=== PATIENT | male | born 1955 | race Caucasian/White ===

== ENCOUNTER 2023-12-04 15:37 | Emergency (ER) | payer OTHER ==
[2023-12-04] MEDS: Lidocaine 1% with EPINEPHrine 1:100,000 20 ML MDV INJECT ONE (19:19)
[2023-12-04] MEDS: Ibuprofen 600 MG Tab PO ONE (19:45)
== END 2023-12-04 19:55 | disposition home or self-care (01) ==
LOC: KA.ED 15:37
DX: S01.81XA Laceration without foreign body of other part of head, initial encounter (principal); R07.81 Pleurodynia; M25.512 Pain in left shoulder; W11.XXXA Fall on and from ladder, initial encounter
CPT/HCPCS: 12011; 70450; 71101-RT; 73030-LT; 73060-LT; 99284; A9270-GY; J3490